=== PATIENT | female | born 1935 | race Caucasian/White ===

== ENCOUNTER 2021-12-24 21:48 | Inpatient (IN) | payer MEDICARE ==
[2021-12-24] MEDS ORDERED: Sodium Chloride 0.9% 1,000 ML IV SCH (23:45)
[2021-12-24] MEDS ORDERED: hydrALAZINE 20 MG/ML VIAL SLOW IVP PRN (23:51)
[2021-12-24] MEDS ORDERED: Morphine 2 MG/ML VIAL SLOW IVP PRN (23:51)
[2021-12-24 23:55] LABS: #Basophils 0.1 thou/uL (0.0-0.2); #Eosinphils 0.2 thou/uL (0.0-0.7); #Lymphocytes 2.1 thou/uL (1.20-3.40); #Monocytes 0.7 thou/uL (0.11-0.59); #Neutrophils 8.4 thou/uL (1.40-6.50); %Basophils 0.5 % (0.0-1.0); %Eosinophils 1.8 % (0.0-10.0); %Lymphocytes 18.2 % (21.0-51.0); %Monocytes 6.3 % (0.0-10.0); %Neutrophils 73.1 % (42.0-75.0); Hemoglobin 13.1 g/dL (12.0-16.0); Mean Corpuscular HGB CONC 32.5 g/dL (32.0-36.0); Mean Corpuscular Hemoglobin 30.9 pg (27.0-31.0); Mean Platelet Volume 8.2 fL (7.4-10.4); Platelet Count 190 thou/uL (130-400); RBC Distribution Width 12.9 % (11.5-14.5); Red Blood Cell (RBC) Count 4.23 mill/uL (4.20-5.40); White Blood Cell (WBC) Count 11.5 thou/uL (4.8-10.8)
[2021-12-25] MEDS ORDERED: Morphine 4 MG/ML VIAL ONE (00:10)
[2021-12-25] MEDS ORDERED: Ondansetron PF 4 MG/2 ML Vial ONE ×2 (00:11→12:38)
[2021-12-25 00:20] LABS: ALT (SGPT) 14 U/L (8-55); AST (SGOT) 21 U/L (5-34); Albumin 3.9 g/dL (3.4-4.8); Alkaline Phosphatase 57 U/L (40-110); Anion Gap 14 mmol/L (10-20); BUN (Urea Nitrogen) 13 mg/dL (9.8-20.1); Bilirubin, Total 0.7 mg/dL (0.2-1.2); Calc. Creatinine Clearance 0 mL/min (70-130); Calcium 9.8 mg/dL (7.8-10.44); Carbon Dioxide 22 mmol/L (23-31); Chloride 106 mmol/L (98-107); Globulin 2.8 g/dL (2.4-3.5); Glucose 94 mg/dL (83-110); Potassium 4.4 mmol/L (3.5-5.1); Protein, Total 6.7 g/dL (5.8-8.1); Sodium 138 mmol/L (136-145)
[2021-12-25 03:54] LABS: SARS-CoV-2 NAA Rapid Test Not Detected (NotDetected)
[2021-12-25 03:55] VITALS: BMI 24.4
[2021-12-25] MEDS: Acetaminophen 500 MG TAB PO SCH ×4 (05:50→23:25)
[2021-12-25 06:02] LABS: INR-International Normal Ratio 1.1; PTT 32.1 sec (22.9-36.1); Prothrombin Time 14.1 sec (12.0-14.7)
[2021-12-25 06:30] LABS: Anion Gap 13 mmol/L (10-20); BUN (Urea Nitrogen) 11 mg/dL (9.8-20.1); Calc. Creatinine Clearance 55 mL/min (70-130); Calcium 9.2 mg/dL (7.8-10.44); Carbon Dioxide 23 mmol/L (23-31); Chloride 107 mmol/L (98-107); Glucose 104 mg/dL (83-110); Magnesium 1.9 mg/dL (1.6-2.6); Phosphorus 3.8 mg/dL (2.3-4.7); Potassium 4.3 mmol/L (3.5-5.1); Sodium 139 mmol/L (136-145)
[2021-12-25] MEDS ORDERED: Ibuprofen 800 MG TAB PO PRN (07:17)
[2021-12-25] MEDS ORDERED: traMADol HCl 50 MG TAB PO PRN (07:17)
[2021-12-25] MEDS: Famotidine 20 MG TAB PO SCH ×2 (07:39→20:32)
[2021-12-25] MEDS: Polyethylene Glycol 3350 17 GM Packet PO SCH (07:40)
[2021-12-25] MEDS: Senokot S 8.6-50 MG TAB PO SCH ×2 (07:40→20:32)
[2021-12-25] MEDS ORDERED: PHOS-NAK 1 PKT PACK PO SCH (08:00)
[2021-12-25] MEDS ORDERED: Famotidine 40 MG/4 ML VIAL SLOW IVP SCH (09:00)
[2021-12-25] MEDS ORDERED: fentaNYL Citrate/PF 100 MCG/2 ML SYRINGE ONE (12:10)
[2021-12-25] MEDS ORDERED: Sodium Chloride 0.9% 100 ML ONE (12:28)
[2021-12-25] MEDS ORDERED: CEFAZOLIN 2 GM VIAL ONE (12:28)
[2021-12-25] MEDS ORDERED: CEFAZOLIN 2 GM in Sodium Chloride 0.9% 100 ML IVPB SCH (12:30)
[2021-12-25] MEDS ORDERED: Glycopyrrolate 0.2 MG/ML 5 ML SYRINGE ONE (12:38)
[2021-12-25] MEDS ORDERED: PROPOFOL 200 MG/20 ML VIAL ONE (12:38)
[2021-12-25] MEDS ORDERED: Rocuronium Bromide 10 MG/ML (10ML VIAL) ONE (12:38)
[2021-12-25] MEDS ORDERED: Dexamethasone 20 MG/5 ML VIAL ONE (12:38)
[2021-12-25] MEDS ORDERED: Lidocaine 1% PF 5 ML VIAL ONE (12:38)
[2021-12-25] MEDS ORDERED: Fentanyl 100 MCG/2 ML VIAL ONE (15:16)
[2021-12-25] MEDS: CEFAZOLIN 2 GM in Sodium Chloride 0.9% 100 ML IVPB SCH (20:34)
[2021-12-26] MEDS: Acetaminophen 500 MG TAB PO SCH ×4 (05:50→23:42)
[2021-12-26] MEDS: CEFAZOLIN 2 GM in Sodium Chloride 0.9% 100 ML IVPB SCH (05:51)
[2021-12-26 06:12] LABS: #Lymphocytes 0.9 thou/uL (1.20-3.40); #Monocytes 0.8 thou/uL (0.11-0.59); #Neutrophils 11.2 thou/uL (1.40-6.50); %Basophils 0.1 % (0.0-1.0); %Eosinophils 0.1 % (0.0-10.0); %Lymphocytes 6.9 % (21.0-51.0); %Monocytes 6.2 % (0.0-10.0); %Neutrophils 86.8 % (42.0-75.0); Hemoglobin 10.5 g/dL (12.0-16.0); Mean Corpuscular HGB CONC 32.4 g/dL (32.0-36.0); Mean Corpuscular Hemoglobin 31.1 pg (27.0-31.0); Mean Corpuscular Volume 95.9 fL (78.0-98.0); Mean Platelet Volume 8.4 fL (7.4-10.4); Platelet Count 176 thou/uL (130-400); RBC Distribution Width 12.7 % (11.5-14.5); Red Blood Cell (RBC) Count 3.37 mill/uL (4.20-5.40); White Blood Cell (WBC) Count 12.9 thou/uL (4.8-10.8)
[2021-12-26 06:29] LABS: Anion Gap 13 mmol/L (10-20); BUN (Urea Nitrogen) 9 mg/dL (9.8-20.1); Calc. Creatinine Clearance 60 mL/min (70-130); Calcium 8.3 mg/dL (7.8-10.44); Carbon Dioxide 20 mmol/L (23-31); Chloride 107 mmol/L (98-107); Glucose 146 mg/dL (83-110); Magnesium 1.6 mg/dL (1.6-2.6); Phosphorus 3.7 mg/dL (2.3-4.7); Potassium 4.3 mmol/L (3.5-5.1); Sodium 136 mmol/L (136-145)
[2021-12-26] MEDS: Famotidine 20 MG TAB PO SCH ×2 (08:30→21:01)
[2021-12-26] MEDS: Senokot S 8.6-50 MG TAB PO SCH ×2 (08:30→21:02)
[2021-12-26] MEDS: Polyethylene Glycol 3350 17 GM Packet PO SCH (08:33)
[2021-12-26] MEDS ORDERED: PHOS-NAK 1 PKT PACK PO SCH (09:00)
[2021-12-26] MEDS ORDERED: Magnesium 2 GM/50 ML(in water) 2 GM in Premix Bag 1 BAG IVPB SCH (09:00)
[2021-12-26] MEDS: traMADol HCl 50 MG TAB PO PRN ×2 (09:42→15:14)
[2021-12-26] MEDS: Aspirin 81 mg Enteric Coated Tablet PO SCH ×2 (09:43→21:01)
[2021-12-26] MEDS: Ibuprofen 200 MG TAB PO PRN ×2 (11:25→21:02)
[2021-12-27] MEDS: Acetaminophen 500 MG TAB PO SCH ×3 (05:07→17:14)
[2021-12-27 05:48] LABS: #Eosinphils 0.2 thou/uL (0.0-0.7); #Lymphocytes 1.6 thou/uL (1.20-3.40); #Monocytes 1.1 thou/uL (0.11-0.59); #Neutrophils 9.3 thou/uL (1.40-6.50); %Basophils 0.2 % (0.0-1.0); %Lymphocytes 13.3 % (21.0-51.0); %Monocytes 8.9 % (0.0-10.0); %Neutrophils 75.5 % (42.0-75.0); Hemoglobin 10.3 g/dL (12.0-16.0); Mean Corpuscular HGB CONC 32.8 g/dL (32.0-36.0); Mean Corpuscular Hemoglobin 31.2 pg (27.0-31.0); Mean Corpuscular Volume 95.2 fL (78.0-98.0); Mean Platelet Volume 8.3 fL (7.4-10.4); Platelet Count 167 thou/uL (130-400); RBC Distribution Width 12.7 % (11.5-14.5); Red Blood Cell (RBC) Count 3.29 mill/uL (4.20-5.40); White Blood Cell (WBC) Count 12.2 thou/uL (4.8-10.8)
[2021-12-27 06:37] LABS: Anion Gap 10 mmol/L (10-20); BUN (Urea Nitrogen) 16 mg/dL (9.8-20.1); Calc. Creatinine Clearance 55 mL/min (70-130); Calcium 8.5 mg/dL (7.8-10.44); Carbon Dioxide 24 mmol/L (23-31); Chloride 102 mmol/L (98-107); Glucose 131 mg/dL (83-110); Magnesium 2.1 mg/dL (1.6-2.6); Phosphorus 2.5 mg/dL (2.3-4.7); Potassium 4.3 mmol/L (3.5-5.1); Sodium 132 mmol/L (136-145)
[2021-12-27] MEDS: Polyethylene Glycol 3350 17 GM Packet PO SCH (08:17)
[2021-12-27] MEDS: Aspirin 81 mg Enteric Coated Tablet PO SCH ×2 (08:18→20:54)
[2021-12-27] MEDS: Famotidine 20 MG TAB PO SCH (08:19)
[2021-12-27] MEDS: traMADol HCl 50 MG TAB PO PRN (08:19)
[2021-12-27] MEDS: Ibuprofen 200 MG TAB PO PRN (08:20)
[2021-12-27] MEDS: Senokot S 8.6-50 MG TAB PO SCH ×2 (08:22→20:48)
[2021-12-27] MEDS: Rosuvastatin 10 MG TAB PO SCH (08:24)
[2021-12-27] MEDS ORDERED: PHOS-NAK 1 PKT PACK PO SCH (09:00)
[2021-12-27] MEDS: Ondansetron PF 4 MG/2 ML Vial IVP PRN (11:18)
[2021-12-28] MEDS: Acetaminophen 500 MG TAB PO SCH ×5 (00:49→23:19)
[2021-12-28] MEDS ORDERED: Ramipril 5 MG CAP PO SCH (09:00)
[2021-12-28] MEDS: Ramipril 5 MG CAP PO SCH (09:57)
[2021-12-28] MEDS: Senokot S 8.6-50 MG TAB PO SCH ×2 (09:59→20:40)
[2021-12-28] MEDS: Rosuvastatin 10 MG TAB PO SCH (10:00)
[2021-12-28] MEDS: Aspirin 81 mg Enteric Coated Tablet PO SCH ×2 (10:01→20:40)
[2021-12-28] MEDS: Polyethylene Glycol 3350 17 GM Packet PO SCH (10:02)
[2021-12-28] MEDS: Ondansetron PF 4 MG/2 ML Vial IVP PRN ×2 (12:43→20:39)
[2021-12-28] MEDS: Promethazine HCl 25 MG/ML VIAL IM PRN (23:09)
[2021-12-29] MEDS ORDERED: Sodium Chloride 0.9% 1,000 ML IV SCH (03:30)
[2021-12-29] MEDS: Acetaminophen 500 MG TAB PO SCH ×3 (06:06→17:26)
[2021-12-29] MEDS: Promethazine HCl 25 MG/ML VIAL IM PRN (07:45)
[2021-12-29] MEDS: Ramipril 5 MG CAP PO SCH (09:16)
[2021-12-29] MEDS: Aspirin 81 mg Enteric Coated Tablet PO SCH (12:34)
[2021-12-29] MEDS: Polyethylene Glycol 3350 17 GM Packet PO SCH (12:49)
[2021-12-29] MEDS: Rosuvastatin 10 MG TAB PO SCH (12:49)
[2021-12-29] MEDS: Senokot S 8.6-50 MG TAB PO SCH ×2 (12:50→20:57)
[2021-12-30] MEDS: Acetaminophen 500 MG TAB PO SCH ×4 (01:15→18:17)
[2021-12-30] MEDS: Aspirin 81 mg Enteric Coated Tablet PO SCH ×3 (01:17→20:15)
[2021-12-30] MEDS: Promethazine HCl 25 MG/ML VIAL IM PRN ×3 (01:17→20:15)
[2021-12-30] MEDS: Ramipril 5 MG CAP PO SCH (09:45)
[2021-12-30] MEDS: Polyethylene Glycol 3350 17 GM Packet PO SCH (09:46)
[2021-12-30] MEDS: Senokot S 8.6-50 MG TAB PO SCH ×2 (09:46→20:16)
[2021-12-30] MEDS: Rosuvastatin 10 MG TAB PO SCH (09:46)
[2021-12-30] MEDS: Scopolamine 1.5 mg/72 hour Patch TD SCH (13:16)
[2021-12-30 18:54] LABS: Bacteria/HPF None Seen HPF (None Seen); Bilirubin Negative (Negative); Blood, Urine 2+ (Negative); Clarity Clear (Clear); Glucose, Urine (Dipstick) Normal (Negative); Ketone, Urine Negative (Negative); Leukocyte Negative Leu/uL (Negative); Nitrite Negative (Negative); Protein, Urine (Dipstick) Negative (Neg-Trace); RBC/HPF 0-3 HPF (0-3); Specific Gravity, Urine 1.008 (1.002-1.036); Squamous Epithelial None Seen HPF (0-3); Urobilinogen Normal mg/dL (Less than 2); WBC/HPF 0-3 HPF (0-3); pH, Urine 5.5 (5.0-9.0)
[2021-12-30 18:55] LABS: Urine Culture Reflex No No
[2021-12-31] MEDS: Acetaminophen 500 MG TAB PO SCH ×6 (02:32→18:08)
[2021-12-31 05:47] LABS: #Basophils 0.1 thou/uL (0.0-0.2); #Eosinphils 0.4 thou/uL (0.0-0.7); #Monocytes 0.8 thou/uL (0.11-0.59); #Neutrophils 6.8 thou/uL (1.40-6.50); %Basophils 0.7 % (0.0-1.0); %Eosinophils 3.9 % (0.0-10.0); %Lymphocytes 20.1 % (21.0-51.0); %Monocytes 7.7 % (0.0-10.0); %Neutrophils 67.6 % (42.0-75.0); Hemoglobin 9.9 g/dL (12.0-16.0); Mean Corpuscular Hemoglobin 31.4 pg (27.0-31.0); Mean Platelet Volume 7.6 fL (7.4-10.4); Platelet Count 204 thou/uL (130-400); RBC Distribution Width 12.9 % (11.5-14.5); Red Blood Cell (RBC) Count 3.14 mill/uL (4.20-5.40); White Blood Cell (WBC) Count 10.1 thou/uL (4.8-10.8)
[2021-12-31 06:24] LABS: Anion Gap 11 mmol/L (10-20); BUN (Urea Nitrogen) 15 mg/dL (9.8-20.1); Calc. Creatinine Clearance 52 mL/min (70-130); Calcium 8.9 mg/dL (7.8-10.44); Carbon Dioxide 26 mmol/L (23-31); Chloride 104 mmol/L (98-107); Glucose 105 mg/dL (83-110); Magnesium 1.9 mg/dL (1.6-2.6); Phosphorus 3.1 mg/dL (2.3-4.7); Potassium 4.7 mmol/L (3.5-5.1); Sodium 136 mmol/L (136-145)
[2021-12-31] MEDS ORDERED: PHOS-NAK 1 PKT PACK PO SCH (07:45)
[2021-12-31] MEDS: Ramipril 5 MG CAP PO SCH (08:47)
[2021-12-31] MEDS: Senokot S 8.6-50 MG TAB PO SCH ×2 (08:47→22:13)
[2021-12-31] MEDS: Aspirin 81 mg Enteric Coated Tablet PO SCH ×2 (08:47→22:13)
[2021-12-31] MEDS: Rosuvastatin 10 MG TAB PO SCH (08:48)
[2021-12-31] MEDS: Polyethylene Glycol 3350 17 GM Packet PO SCH (08:48)
[2022-01-01] MEDS: Acetaminophen 500 MG TAB PO SCH ×4 (00:58→17:27)
[2022-01-01] MEDS: Aspirin 81 mg Enteric Coated Tablet PO SCH ×2 (08:45→21:14)
[2022-01-01] MEDS: Ibuprofen 200 MG TAB PO PRN ×2 (08:45→17:31)
[2022-01-01] MEDS: Ramipril 5 MG CAP PO SCH (08:45)
[2022-01-01] MEDS: Rosuvastatin 10 MG TAB PO SCH (08:46)
[2022-01-01] MEDS: Polyethylene Glycol 3350 17 GM Packet PO SCH (08:46)
[2022-01-01] MEDS: Senokot S 8.6-50 MG TAB PO SCH ×2 (08:46→21:14)
[2022-01-02] MEDS: Acetaminophen 500 MG TAB PO SCH ×5 (01:38→23:31)
[2022-01-02] MEDS: Aspirin 81 mg Enteric Coated Tablet PO SCH ×2 (08:13→21:31)
[2022-01-02] MEDS: Ramipril 5 MG CAP PO SCH (08:13)
[2022-01-02] MEDS: Polyethylene Glycol 3350 17 GM Packet PO SCH (08:14)
[2022-01-02] MEDS: Rosuvastatin 10 MG TAB PO SCH (08:14)
[2022-01-02] MEDS: Senokot S 8.6-50 MG TAB PO SCH ×2 (08:14→21:31)
[2022-01-02] MEDS: traMADol HCl 50 MG TAB PO PRN (11:05)
[2022-01-02] MEDS: Scopolamine 1.5 mg/72 hour Patch TD SCH (11:07)
[2022-01-02] MEDS ORDERED: traMADol HCl 50 MG TAB PO PRN (11:45)
[2022-01-02] MEDS: traMADol HCl 50 MG TAB PO SCH ×3 (12:41→23:31)
[2022-01-02] MEDS: Ibuprofen 200 MG TAB PO PRN (14:10)
[2022-01-03] MEDS: traMADol HCl 50 MG TAB PO SCH ×2 (05:34→12:28)
[2022-01-03] MEDS: Acetaminophen 500 MG TAB PO SCH ×2 (05:34→12:28)
[2022-01-03] MEDS: Aspirin 81 mg Enteric Coated Tablet PO SCH (08:16)
[2022-01-03] MEDS: Rosuvastatin 10 MG TAB PO SCH (08:16)
[2022-01-03] MEDS: Ramipril 5 MG CAP PO SCH (08:16)
[2022-01-03] MEDS: Senokot S 8.6-50 MG TAB PO SCH (08:16)
[2022-01-03] MEDS: Polyethylene Glycol 3350 17 GM Packet PO SCH (08:17)
[2022-01-03 16:02] VITALS: BP 107/66; TEMP 97.8
== END 2022-01-03 15:57 | disposition swing bed (61) | DRG 522 ==
LOC: ERS 21:48 → SJJU 23:46
PROVIDERS: ADMIT Specialist; ATTEND Surgery
PROC: 0SRS0J9 Replacement of Left Hip Joint, Femoral Surface with Synthetic Substitute, Cemented, Open Approach (ICD-10-PCS; principal; 2021-12-25)
PROC: 0T9B70Z Drainage of Bladder with Drainage Device, Via Natural or Artificial Opening (ICD-10-PCS; 2021-12-31)
DX: S72.002A Fracture of unspecified part of neck of left femur, initial encounter for closed fracture (principal); I10 Essential (primary) hypertension; W19.XXXA Unspecified fall, initial encounter; K21.9 Gastro-esophageal reflux disease without esophagitis; R33.9 Retention of urine, unspecified; R11.2 Nausea with vomiting, unspecified; E78.5 Hyperlipidemia, unspecified; Z20.822 Contact with and (suspected) exposure to COVID-19; Z98.890 Other specified postprocedural states; Z90.49 Acquired absence of other specified parts of digestive tract; Z90.710 Acquired absence of both cervix and uterus; Y92.003 Bedroom of unspecified non-institutional (private) residence as the place of occurrence of the external cause
CPT/HCPCS: 36415; 36416; 71045; 72170; 76000; 80048; 80053; 81001; 83735; 84100; 85025; 85610; 85730; 86850; 86900; 86901; 93005; 96374; 96375; C1713; C1776; G0390; J0690; J1100; J2270; J2405; J2550; J2704; J3010; J3475; J3490; J7050; U0002; U0003; U0005

== ENCOUNTER 2023-09-02 09:26 | Outpatient (CLI) | payer MEDICARE | END 2023-09-02 09:27 | disposition home or self-care (01) | LOC: ULT 09:26 | PROVIDERS: ATTEND Internal Medicine Cardiovascular Disease | DX: E04.1 Nontoxic single thyroid nodule (principal) | CPT/HCPCS: 76536 ==